=== PATIENT | male | born 1995 | race Caucasian/White ===

== ENCOUNTER → 2017-12-20 14:29 | Outpatient (POV) | payer SELFPAY | PROVIDERS: Visit Provider Nurse Practitioner Acute Care | DX: Z00.00 Encounter for general adult medical examination without abnormal findings (principal) ==

== ENCOUNTER 2022-09-04 19:06 | Emergency (ER) | payer SELFPAY ==
[2022-09-04] VITALS (8 sets, daily range): BP systolic 83–143; BP diastolic 43–91; PULSE 50–77; RESP 16–19; TEMP 36.5; O2SAT 95–100; BMI 23.0
--- NOTE | 2022-09-04 19:27 | PC.NURSE ---
Patient experienced syncopal episode during cleaning of his wound. IV initiated, NS bolus given per MD order. Labs obtained and sent to lab.
[2022-09-04 19:39] LABS: Basophils # 0.1 K/mm3 (0-0.2); Eosinophils # 0.1 K/mm3 (0.0-0.4); Eosinophils % 1.2 % (0.1-12.0); Hematocrit 43.9 % (42.0-52.0); Hemoglobin 14.7 g/dL (14.1-18.0); Lymphocytes # 2.2 K/mm3 (0.7-4.5); Lymphocytes % 21.3 % (10-50); Mean Corpuscular HGB Conc 33.6 g/dL (31.8-35.4); Mean Corpuscular Volume 83.4 fl (80-94); Mean Platelet Volume 7.6 fl (7.4-10.4); Monocytes # 0.4 K/mm3 (0.1-1.0); Monocytes % 3.4 % (1.7-9.3); Neutrophils # 7.5 K/mm3 (1.8-7.8); Neutrophils % 73.1 % (37.0-80.0); Platelet Count 362 K/mm3 (142-424); Red Blood Count 5.26 M/mm3 (4.60-6.20); Red Cell Distribution Width 13.2 % (11.5-17.5); White Blood Count 10.3 K/mm3 (4.8-10.8)
[2022-09-04 19:44] LABS: Chloride 104 mmol/L (98-107); Sodium 133 mmol/L (136-145)
[2022-09-04 19:47] LABS: Alanine Aminotransferase 26 U/L (12-78); Albumin Level 3.5 g/dl (3.5-5.0); Albumin/Globulin Ratio 1.5 (1.1-1.8); Alkaline Phosphatase 42 U/L (38-126); Aspartate Amino Transferase 27 U/L (17-59); Bilirubin,Total 0.3 mg/dl (0.2-1.3); Blood Urea Nitrogen 18 mg/dl (9-20); Carbon Dioxide 25 mmol/L (22.0-30.0); Creatinine Clearance Estimated 117 mL/min (50-200); Estimated Glomerular Filt Rate 90 ml/min (>60); GFR (African American) 108 ML/MIN (>60); Globulin 2.3 g/dL (1.3-3.2); Total Protein,Serum 5.8 g/dl (6.3-8.2)
[2022-09-04 19:48] LABS: Calcium 8.2 mg/dl (8.4-10.2); Glucose 115 mg/dl (74-100)
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
== END 2022-09-04 20:59 | disposition home or self-care (01) ==
PROVIDERS: Emergency Medicine; Emergency Provider Emergency Medicine; PCP Nurse Practitioner Family
DX: S61.411A Laceration without foreign body of right hand, initial encounter (principal); R55 Syncope and collapse; W19.XXXA Unspecified fall, initial encounter
CPT/HCPCS: 12002; 80053; 85025; 99284

== ENCOUNTER 2025-01-15 18:28 | Emergency (ER) | payer SELFPAY ==
[2025-01-15 18:37] VITALS: BP 153/104; PULSE 72; RESP 16; TEMP 37.1; O2SAT 99; BMI 23.0
--- NOTE | 2025-01-15 18:42 | ED_ITS ---
<Statement entered by Roma Young DO - 01/15/25 23:57> I was consulted by the DEMARCO, and we discussed the complexity of the problems being addressed. I approved the treatment and management plan for this patient's care in the emergency department, thus performing a substantive portion of the medical decision making. I independently interpreted x-ray before and after reduction and noted dislocation and then satisfactory reduction. Patient remained neurovascularly intact afterward and was placed in shoulder immobilizer. I was present for entirety of reduction. Instructions for supportive care and strict return precautions given Roma Young DO Discharge Plan Disposition Patient Disposition: Home, Self-Care Prescriptions Prescriptions: New ibuprofen 800 mg tablet 800 mg PO TID PRN (Reason: pain) Qty: 30 0RF No Action cephalexin [cephalexin] 500 mg capsule 500 mg PO TID Qty: 30 0RF Referrals Follow up/Referrals: Jin Flores APRN [Primary Care Provider, Medical] - See instructions Dave Arellano DO [Staff Physician, Orthopedics] - See instructions Activity Restrictions/Add. Instructions Additional Instructions/Restrictions: Keep splint on until you follow-up with Dr. Arellano, the Ortho doctor. Ice the shoulder on for 20 minutes off for 20 minutes for the next 24 hours. Take Tylenol every 4 hours and ibuprofen every 6-8 hours. If any worsening problems or concerns please return to the ED or call your PCP. Clinical Impressions Clinical Impression: Dislocated joint, Anterior shoulder dislocation Instructions Patient Instructions: DI for Shoulder Dislocation, DI for Moderate Sedation Print Language Print Language: Chinese Discharge ED Provider: Roma Young General Adult HPI General Chief complaint: PAIN Stated complaint: AO 01/15/25 1730 injury left shoulder Time Seen by Provider: 01/15/25 18:38 Mode of Arrival: Ambulatory Source of Information: Patient Description of Symptoms (Recalled from ER Triage Doc. by RN): pt presents to ED with c/o left shoulder pain. pt reports that he was swinging a groundhog and he felt his shoulder pop out. happened approx 1 hour ago History of Present Illness HPI narrative: 29-year-old male presents to the ED today with complaint of left shoulder pain. It appears to be dislocated. He reports that he was swinging a groundhog and felt his shoulder pop out this happened approximately 1 hour ago. Patient arrives with slightly elevated blood pressure but otherwise stable vitals. Appears otherwise well. Related Data Previous Rx's ?Medication ?Instructions ?Recorded cephalexin 500 mg capsule 500 mg PO TID #30 caps 09/04 ibuprofen 800 mg tablet 800 mg PO TID PRN pain #30 t abs 01/15/25 Allergies Allergy/AdvReac Type Severity Reaction Status Date / Time No Known Allergies Allergy Verified 10/04/17 13:56 [facility] Disclaimer: The information contained in this section may have been updated after the patient was seen, as this information can be updated by other users. Social History (Updated 09/04/22 @ 20:51 by Nelson Pressley (ED)MD) Smoking Status: Never smoker alcohol intake: never current occupational status: employed Travel in the last 8 weeks?: None Have you lived/traveled outside [place] in past 30 days?: No Contact w/someone who lives/traveled outside [place] past 30 days?: No Exposure to someone with infectious disease in past 14 days?: No Do you have a fever (greater than 100.4 F or 38 C)?: No Have you tested positive for COVID-19?: No Exposed to someone with COVID-19 in past 14 days?: No Do you have a sore throat?: No Do you have a cough?: No Do you have any weakness?: No Do you have any diarrhea?: No Are you experiencing any unusual bleeding?: No Do you have any muscle aches/pain?: No Do you have any abdominal pain?: No Are you experiencing loss of taste or smell?: No ROS Obtained: Yes Systems reviewed as appropriate & no additional complaints except as documented Constitutional Constitutional: Reports as per HPI Physical Exam General General appearance: alert and in distress Head Head exam: normocephalic Eye Eye exam: Present normal appearance, PERRL and EOMI ENT ENT exam: Present normal oropharynx and mucous membranes moist Neck Neck exam: Present full ROM and trachea midline Respiratory Respiratory exam: Present normal lung sounds bilaterally Cardiovascular Cardiovascular exam: Present regular rate, normal rhythm, normal heart sounds, +S1 and +S2 Extremities Exam Extremities exam: Present tenderness, normal capillary refill and other (left dislocated shoulder) Neurological Exam Neurological exam: Present alert, oriented X3 and normal gait Skin Skin exam: Present warm, dry and intact Medical Decision Making Medical Records Screening: Per USPSTF and CDC recommendations, given the prevalence of disease in our region, it is our hospital?s policy to screen for HIV and viral Hepatitis for all patients aged 18 and over and those with ongoing risk factors. Joey Inquiry Pt receiving controlled substance: No Joey was queried for this patient: No Vital Signs: 01/15/25 18:37 01/15/25 19:19 01/15/25 19:19 Temperature 98.7 F Temperature Source Oral Pulse Rate Pulse Rate [Left Radial] 72 Respiratory Rate 16 20 Blood Pressure 122/84 Blood Pressure [Right Arm] 153/104 H Blood Pressure Mean 96 Blood Pressure Mean [Right Arm] 120 Blood Pressure Source Blood Pressure Source [Right Arm] Automatic Cuff Blood Pressure Position Blood Pressure Position [Right Arm] Supine 02 Sat by Pulse Oximetry 99 Oxygen Delivery Method Room Air 01/15/25 19:30 Temperature 98.4 F Temperature Source Oral Pulse Rate 82 Pulse Rate [Left Radial] Respiratory Rate 20 Blood Pressure 122/84 Blood Pressure [Right Arm] Blood Pressure Mean Blood Pressure Mean [Right Arm] Blood Pressure Source Automatic Cuff Blood Pressure Source [Right Arm] Blood Pressure Position Sitting Blood Pressure Position [Right Arm] 02 Sat by Pulse Oximetry Oxygen Delivery Method Room Air Orders (Tests/Meds): ED MEDICATIONS Discontinued Medications Generic Name Dose Route Start Last Admin Trade Name Freq PRN Reason Stop Dose Admin Fentanyl Citrate 100 mcg 01/15/25 18:40 01/15/25 19:11 Fentanyl 100mcg/2ml Vial IV 01/15/25 18:41 100 mcg ONCE ONE Administration Ondansetron HCl 4 mg 01/15/25 18:40 01/15/25 19:11 Ondansetron 4mg/2ml Vial IV 01/15/25 18:41 4 mg ONCE ONE Administration ORDERS Category Date Time Status Shoulder XR left 1 view [XR shoulder LT 1V] Stat Exams 01/15/25 19:14 Comple jet Shoulder XR left minimum 2 views [XR shoulder LT min 2V Exams 01/15/25 18:45 Completed ] Stat HIV Combo Stat Lab 01/15/25 18:48 Received Hepatitis C Ab Qual. W/ RFX Stat Lab 01/15/25 18:48 Received Medical Decision Narrative: patient is a 29-year-old male presenting to the emergency department for evaluation of left dislocated shoulder. Patient is hemodynamically stable and nontoxic-appearing upon arrival, afebrile. Differential diagnosis includes fracture versus dislocation. Workup will be conducted with imaging. Initial inventions include x-ray. Imaging informally interpreted by me and remarkable for left dislocated shoulder. Formal imaging read remarkable for dislocated shoulder. Samy Zaldivar and I reduced patient's shoulder with 100 mics of fentanyl and 4 of Zofran. This was patient's choice. He and I discussed sedation versus pain medication and he wanted to try the pain medication first before doing a sedation. Patient tolerated the procedure well. Upon repeat evaluation patient's pain is improved. Patient needs to follow-up with Dr. Arellano in follow-up. Patient safe for discharge home with splint on and follow-up with PCP. Procedures Orthopedic Joint Reduction Joint #1: Time Out Performed: Yes Side: left Joint Reduction Location: shoulder Analgesia: other (fentanyl 100 mcg) Amount of anesthesic used (mL): 100 (cg fentanyl) Shoulder Technique Used (if applicable): traction/counter-traction and external rotation Post-reduction neuro exam: intact Post-reduction vascular: intact Post Reduction X-Ray Obtained: Yes Post Reduction X-Ray Results: reduced Splint Applied: Yes Patient Tolerated Procedure: well Critical Care Critical Care Time Critical Care Time: No
--- NOTE | 2025-01-15 18:45 | XR_ITS ---
PROCEDURE INFORMATION: Exam: XR Left Shoulder Exam date and time: 01/15/2025 7:05 PM Age: 29 years old Clinical indication: Pain; Shoulder; Left; Additional info: Dislocation TECHNIQUE: Imaging protocol: Radiologic exam of the left shoulder. Views: 2 or more views. COMPARISON: No relevant prior studies available. FINDINGS: Bones/joints: The humeral head is dislocated anteriorly and inferiorly to the glenoid.. 1.8 cm sclerotic density noted in the proximal humeral shaft, compatible with bone island (enostosis) in patient without history of neoplastic disease. Nuclear medicine bone scan may be useful for further evaluation if clinically indicated. Soft tissues: Normal. IMPRESSION: The humeral head is dislocated anteriorly and inferiorly to the glenoid..
--- NOTE | 2025-01-15 18:57 | PC.NURSE ---
eda [id number]
--- NOTE | 2025-01-15 19:00 | PC.NURSE ---
fentanyl and zofran handed off to shift production supervisor nurse to give for sedation.
[2025-01-15] MEDS: ONDANSETRON 4MG/2ML VIAL 4 MG IV (19:11)
[2025-01-15] MEDS: FENTANYL 100MCG/2ML VIAL 100 MCG IV (19:11)
--- NOTE | 2025-01-15 19:14 | XR_ITS ---
PROCEDURE INFORMATION: Exam: XR Left Shoulder Exam date and time: 01/15/2025 7:14 PM Age: 29 years old Clinical indication: Screening exam; Post reduction film TECHNIQUE: Imaging protocol: Radiologic exam of the left shoulder. Views: 1 view. COMPARISON: CR XR SHOULDER LT MIN 2V 01/15/2025 7:05 PM FINDINGS: Bones/joints: The glenohumeral joint has been reduced and is now in good alignment.. 1.8 cm sclerotic density noted in the proximal humeral shaft, compatible with bone island (enostosis) in patient without history of neoplastic disease. Nuclear medicine bone scan may be useful for further evaluation if clinically indicated. Soft tissues: Normal. IMPRESSION: The glenohumeral joint has been reduced and is now in good alignment..
[2025-01-15 19:19] VITALS: BP 122/84; RESP 20
[2025-01-15 19:30] VITALS: BP 122/84; PULSE 82; RESP 20; TEMP 36.9; O2SAT 100
[2025-01-15 21:29] LABS: Hepatitis C Ab Qual. W/ RFX NEGATIVE (Negative)
== END 2025-01-15 19:43 | disposition home or self-care (01) ==
PROVIDERS: Nurse Practitioner; Emergency Provider Emergency Medicine; PCP Nurse Practitioner Family
DX: S43.015A Anterior dislocation of left humerus, initial encounter (principal); M25.512 Pain in left shoulder; X50.1XXA Overexertion from prolonged static or awkward postures, initial encounter; Z11.59 Encounter for screening for other viral diseases; Z11.4 Encounter for screening for human immunodeficiency virus [HIV]
CPT/HCPCS: 23650; 73020; 73030; 86803; 87389; 96374; 99284; J2405; J3010